=== PATIENT | male | born 1990 | race Caucasian/White ===

== ENCOUNTER 2021-03-13 13:09 | Emergency (ER) | payer BC ==
--- OUTSIDE RECORDS SUMMARY | 2021-03-13 13:11 | XMS REPORT | Continuity of Care Document ---
:1990 Author Organization [facility] t Address [facility] [place] [address] Care Team Providers Name Role Phone PCP, DOES NOT HAVE A Primary Care Physician Unavailable JOSE Attending Clinician Unavailable Lab, Fam Pob I Attending Clinician Unavailable Adri ROPER Attending Clinician Payers Payer Name Policy Type Policy Number Effective Date Expiration Date S ource [facility] - [id number] 2020 00:00:00 OUT OF STATE Problems Condition Condition Condition Status Onset Resolution Last Treating Co mments Source Name Details Category Date Date Treatment Clinician Date No known No known Disease Unive rs active active ity of problems problems [facility] Allergies, Adverse Reactions, Alerts Allergy Allergy Status Severity Reaction(s) Onset Inactive Treating Comm ents Source Name Type Date Date Clinician NO KNOWN Drug Active Univers ALLERGIE Class ity of [facility] Social History Social Habit Start Date Stop Date Quantity Comments [facility] to SARS-CoV-2 Not sure [facility] [place] [facility] Smoking Status Start Date Stop Date Source Unknown if ever smoked Universit y [facility] Medications Ordered Filled Start Stop Current Ordering Indication Dosage Frequency Signature Comments Components Source Medication Medication Date Date Medication? Clinician (SIG) Name Name No known No Univers medications [facility] Procedures This patient has no known procedures. Encounters Start End Encounter Admission Attending Care Care Encounter Source Date/Time Date/Time Type Type Clinicians Facility Department ID 2021-03-13 2021-03-13 Outpatient R [facility] [id number] Univers 14:00:00 14:00:00 [id number] ity [facility] 2021-03-13 2021-03-13 Outpatient R JOSE [facility] [id number] Univers 14:00:00 14:00:00 VASILE ity [facility] 2020-06-27 2020-06-27 Laboratory Lab, [facility].2. [id number] Univers 15:49:46 16:09:46 Only Adri [facility] (formerly known as [employer]) [id number] ity [facility] [id number] Burton as Professio [phone] [facility] [address] 2020-06-27 2020-06-27 Outpatient R [facility] [id number] Univers 16[facility]00[facility]00 [facility] Results This patient has no known results.
[2021-03-13 13:59] LABS: Absolute Lymphocytes (CBC) 2.4 K/uL (0.7-4.9); Basophils % 0.7 % (0-1.3); Hematocrit 42.3 % (39.6-49.0); Lymphocytes % 36.7 % (15.3-44.8); MPV 7.8 fL (7.6-11.3); RBC Red Blood Cell Count 4.75 M/uL (4.33-5.43)
[2021-03-13 14:17] LABS: ALT/SGPT 95 U/L (12-78); AST/SGOT 38 U/L (15-37); Albumin 4.1 g/dL (3.4-5.0); Alkaline Phosphatase 62 U/L (45-117); BUN Blood Urea Nitrogen 16 mg/dL (7-18); Bicarbonate 28 mmol/L (21-32); Bilirubin Direct < 0.1 mg/dL (0-0.2); Bilirubin Total 0.3 mg/dL (0.2-1.0); Glucose Level 87 mg/dL (74-106); Lipase 93 U/L (73-393); Protein, Total 7.9 g/dL (6.4-8.2); Sodium Level 143 mmol/L (136-145)
--- NOTE | 2021-03-13 14:28 | RAD REPORT ---
EXAM DESCRIPTION: CT - Abdomen Pelvis W Contrast - 03/13/2021 2:07 pm CLINICAL HISTORY: Abdominal pain COMPARISON: none. TECHNIQUE: Computed axial tomography of the abdomen pelvis was obtained. 100 cc Isovue-300 was admin istered intravenously. Oral contrast was not requested which limits evaluation of bowel. All CT scans are performed using dose optimization technique as appropriate and may include automated exposure control or mA/KV adjustment according to patient size. FINDINGS: Fatty liver The Spleen, pancreas, adrenal and kidneys appear unremarkable. There is no evidence of diverticulitis. Normal appendix. Small to moderate umbilical hernia contains fat IMPRESSION: Fatty liver
--- NOTE | 2021-03-13 14:48 | ER ---
Nurse's Notes [facility] Name: Dc Patterson Age: 30 yrs Sex: Male : 1990 Arrival Date: 03/13/2021 Time: 13:15 Bed 12 Private MD: Diagnosis: Lower abdominal pain, unspecified Presentation: 03/13 13:28 Chief complaint: Patient states: "2 days ago, I started getting bad pain in my lower ss abdomen, the right side above my groin. It's become more continuous and worse when I walk and reposition.". Coronavirus screen: Client denies travel out of the [place] in the last 14 days. Ebola Screen: Patient denies exposure to infectious person. Patient denies travel to an Ebola-affected area in the 21 days before illness onset. Initial Sepsis Screen: Does the patient meet any 2 criteria? No. Patient's initial sepsis screen is negative. Does the patient have a suspected source of infection? No. Patient's initial sepsis screen is negative. Risk Assessment: Do you want to hurt yourself or someone else? Patient reports no desire to harm self or others. Onset of symptoms was March 11, 2021. 13:28 Method Of Arrival: Ambulatory ss 13:28 Acuity: DARREN 3 ss Historical: - Allergies: 13:30 No Known Allergies; ss - Home Meds: 13:30 None [Active]; ss - PMHx: 13:30 None; ss - PSHx: 13:30 None; ss - Immunization history:: Client reports having NOT received the Covid vaccine. - Social history:: Smoking status: Patient reports the use of cigarette tobacco products, denies chronic smoking, but will smoke occasionally. Screenin:55 Abuse screen: Denies threats or abuse. Nutritional screening: No deficits noted. ap3 Tuberculosis screening: No symptoms or risk factors identified. Fall Risk None identified. Assessment: 13:45 General: Appears in no apparent distress. comfortable, Behavior is calm, cooperative, aj1 appropriate for age. Pain: Complains of pain in right lower quadrant Pain does not radiate. Quality of pain is described as aching, Pain began 2-3 days ago. Is continuous. Neuro: Level of Consciousness is awake, alert, obeys commands, Oriented to person, place, time, situation. Cardiovascular: Patient's skin is warm and dry. Respiratory: Airway is patent Respiratory effort is even, unlabored, Respiratory pattern is regular, symmetrical. GI: Abdomen is non-distended, Bowel sounds present X 4 quads. Abd is soft X 4 quads Abdomen is tender to palpation in right lower quadrant Patient currently denies diarrhea, nausea, vomiting. : No signs and/or symptoms were reported regarding the genitourinary system. EENT: No signs and/or symptoms were reported regarding the EENT system. Derm: No signs and/or symptoms reported regarding the dermatologic system. Skin is pink, warm \\T\\ dry. normal. Musculoskeletal: No signs and/or symptoms reported regarding the musculoskeletal system. Circulation, motion, and sensation intact. 15:05 Reassessment: Patient appears in no apparent distress at this time. No changes from aj1 previously documented assessment. Patient and/or family updated on plan of care and expected duration. Pain level reassessed. Patient is alert, oriented x 3, equal unlabored respirations, skin warm/dry/pink. Vital Signs: 13:28 BP 156 / 88; Pulse 80; Resp 16; Temp 98.4(TE); Pulse Ox 99% on R/A; Weight 158.76 kg; ss Height 5 ft. 11 in. (180.34 cm); Pain 5/10; 13:28 Body Mass Index 48.81 (158.76 kg, 180.34 cm) ED Course: 13:15 Patient arrived in ED. ds1 13:25 Leila Bean FNP-C is [facility]. kb 13:25 Marko Biswas MD is Attending Physician. kb 13:30 Triage completed. ss 13:30 Arm band placed on right wrist. ss 13:41 Kathrine Caballero, ARMANDO is Primary Nurse. aj1 13:45 No provider procedures requiring assistance completed. aj1 13:54 Inserted saline lock: 20 gauge in left wrist, using aseptic technique. Blood collected. ap3 13:[address] via wheelchair. ap3 13:55 Patient has correct armband on for positive identification. Bed in low position. Call ap3 light in reach. Side rails up X 1. Pulse ox on. NIBP on. Door closed. Noise minimized. 13:55 Lipase Sent. ap3 13:56 Hepatic Function Sent. ap3 13:56 CBC with Diff Sent. ap3 13:56 Basic Metabolic Panel Sent. ap3 14:07 CT Abd/Pelvis - IV Contrast Only In Process Unspecified. EDMS 15:05 IV discontinued, intact, bleeding controlled, No redness/swelling at site. Pressure aj1 dressing applied. Administered Medications: No medications were administered Outcome: 14:48 Discharge ordered by . kb 15:05 Discharged to home ambulatory. aj1 15:05 Condition: good 15:05 Discharge instructions given to patient, Instructed on discharge instructions, follow up and referral plans. Demonstrated understanding of instructions, follow-up care. 15:06 Patient left the ED. aj1 Signatures: Dispatcher [employer] EDMS Leila Bean, CARPENTER LABOR SUPERVISOR-C CARPENTER LABOR SUPERVISOR-CkKathrine Rubio, RN RN aj1 Amina Corcoran ds1 Julia Torres RN RN ss Prokisch, Amanda, RN RN ap3
--- NOTE | 2021-03-13 14:48 | EDPHYS ---
Physician Documentation [facility] Name: Dc Patterson Age: 30 yrs Sex: Male : 1990 Arrival Date: 03/13/2021 Time: 13:15 Bed 12 Private MD: ED Physician Marko Biswas HPI: 03/13 14:59 This 30 yrs old Male presents to ER via Ambulatory with complaints of Lower Pelvic kb Pain, Low Back Pain. 14:59 The patient presents with abdominal pain right lower quadrant. Onset: The kb symptoms/episode began/occurred 3 day(s) ago. The symptoms do not radiate. Associated signs and symptoms: none. The symptoms are described as constant. Modifying factors: The symptoms are alleviated by remaining still, the symptoms are aggravated by movement. Severity of pain: At its worst the pain was moderate in the emergency department the pain is unchanged. The patient has not experienced similar symptoms in the past. The patient has not recently seen a physician. Historical: - Allergies: 13:30 No Known Allergies; ss - Home Meds: 13:30 None [Active]; ss - PMHx: 13:30 None; ss - PSHx: 13:30 None; ss - Immunization history:: Client reports having NOT received the Covid vaccine. - Social history:: Smoking status: Patient reports the use of cigarette tobacco products, denies chronic smoking, but will smoke occasionally. ROS: 14:58 Constitutional: Negative for fever, chills, and weight loss. kb 14:58 Abdomen/GI: Positive for abdominal pain, Negative for nausea, vomiting, and diarrhea. 14:58 All other systems are negative. Exam: 14:58 Constitutional: This is a well developed, well nourished patient who is awake, alert, kb and in no acute distress. Head/Face: Normocephalic, atraumatic. ENT: Moist Mucous membranes Cardiovascular: Regular rate and rhythm with a normal S1 and S2. No gallops, murmurs, or rubs. No pulse deficits. Respiratory: Respirations even and unlabored. No increased work of breathing, no retractions or nasal flaring. Skin: Warm, dry with normal turgor. Normal color. MS/ Extremity: Pulses equal, no cyanosis. Neurovascular intact. Full, normal range of motion. Neuro: Awake and alert, GCS 15, oriented to person, place, time, and situation. Moves all extremities. Normal gait. Psych: Awake, alert, with orientation to person, place and time. Behavior, mood, and affect are within normal limits. 14:58 Abdomen/GI: Inspection: abdomen appears normal, Bowel sounds: normal, in all quadrants, Palpation: soft, in all quadrants, mild abdominal tenderness, in the right lower quadrant. Vital Signs: 13:28 BP 156 / 88; Pulse 80; Resp 16; Temp 98.4(TE); Pulse Ox 99% on R/A; Weight 158.76 kg; ss Height 5 ft. 11 in. (180.34 cm); Pain 5/10; 13:28 Body Mass Index 48.81 (158.76 kg, 180.34 cm) ss MDM: 13:32 Patient medically screened. kb 14:57 Data reviewed: vital signs, nurses notes. Data interpreted: Pulse oximetry: on room air kb is 99 %. Interpretation: normal. Counseling: I had a detailed discussion with the patient and/or guardian regarding: the historical points, exam findings, and any diagnostic results supporting the discharge/admit diagnosis, lab results, radiology results, the need for outpatient follow up, a family practitioner, to return to the emergency department if symptoms worsen or persist or if there are any questions or concerns that arise at home. 03/13 13:31 Order name: Basic Metabolic Panel; Complete Time: 14:20 kb 03/13 13:31 Order name: CBC with Diff; Complete Time: 14:07 kb 03/13 13:31 Order name: Hepatic Function; Complete Time: 14:20 kb 03/13 13:31 Order name: Lipase; Complete Time: 14:20 kb 03/13 13:31 Order name: CT Abd/Pelvis - IV Contrast Only; Complete Time: 14:32 kb 03/13 14:17 Order name: CREATININE WHOLE BLOOD; Complete Time: 14:20 EDMS 03/13 13:31 Order name: IV Saline Lock; Complete Time: 13:55 kb 03/13 13:31 Order name: Labs collected and sent; Complete Time: 13:55 kb Administered Medications: No medications were administered Disposition: 17:57 Co-signature as Attending Physician, Marko Biswas MD I agree with the assessment and kdr plan of care. Disposition Summary: 03/13/21 14:48 Discharge Ordered Location: Home kb Condition: Stable kb Diagnosis - Lower abdominal pain, unspecified kb Followup: kb - With: Emergency Department - When: As needed - Reason: Worsening of condition Followup: kb - With: Private Physician - When: 2 - 3 days - Reason: Recheck today's complaints, Continuance of care, Re-evaluation by your physician Discharge Instructions: - Discharge Summary Sheet kb - Abdominal Pain, Adult, [id number] kb - Muscle Strain, [id number] kb Forms: - Medication Reconciliation Form kb - Thank You Letter kb - Antibiotic Education kb - Prescription Opioid Use kb Signatures: Dispatcher [employer] EDMS Leila Bean, RETAIL BAKERY MANAGER-C RETAIL BAKERY MANAGER-Bradb Marko Biswas MD MD kdr Smirch, Shelby RN RN ss
[2021-03-13 15:27] VITALS: BP 156/88; TEMP 98.4; O2SAT 99
== END 2021-03-13 15:06 | disposition home or self-care (01) ==
LOC: ER 13:09
DX: R10.31 Right lower quadrant pain (principal)
CPT/HCPCS: 85025; 80048; 36415; 82565; 80076; 83690; 74177; 99284; Q9967